=== PATIENT | female | born 1955 ===

== ENCOUNTER → 2025-06-24 | Day surgery (SDC) | payer MEDICARE, BC | LOC: CSHULT 10:51 | PROVIDERS: ATTEND Plastic Surgery | PROC: 0HJT3ZZ Inspection of Right Breast, Percutaneous Approach (ICD-10-PCS; principal; 2025-06-24) | DX: L76.31 Postprocedural hematoma of skin and subcutaneous tissue following a dermatologic procedure (principal) | CPT/HCPCS: 19000; 88112; 88184; 88185; 88189; 88305 ==